=== PATIENT | female | born 1985 | race Caucasian/White ===

== ENCOUNTER 2019-07-09 10:12 | Outpatient (REF) | payer OTHER, SELFPAY ==
[2019-07-09 10:47] LABS: Absolute Basophil Count 0.01 k/cumm (0.0-0.2); Absolute Eosinophil Count 0.03 k/cumm (0.0-0.7); Absolute Lymphocyte Count 1.11 k/cumm (1.2-3.4); Absolute Monocyte Count 0.23 k/cumm (0.11-0.7); Absolute Neutrophil Count 3.32 k/cumm (1.2-6.7); Basophils % 0.2; Eosinophils % 0.6; HCT 38.8 % (36.0-46.0); HGB 13.7 g/dL (12.0-15.5); Lymphocytes % 23.6; Mean Corp. HGB Concentration 35.3 g/dL (32.0-36.0); Mean Corpuscular Hemoglobin 32.4 pg (27.0-33.0); Mean Corpuscular Volume 91.7 fL (80-95); Mean Platelet Volume 10.1 fL (8.0-11.0); Monocytes % 4.9; Neutrophils % 70.7; Platelet Count 189 x1000/uL (130-400); RBC 4.23 m/cumm (4.00-5.20); RBC Distribution Width 11.9 % (11.7-14.6)
[2019-07-09 11:40] LABS: *AMPHETAMINES SCREEN URINE Negative (Negative); *BARBITURATES SCREEN URINE Negative (Negative); *BENZODIAZEPINES SCREEN URINE Negative (Negative); Cannabinoids THC Negative (Negative); Cocaine Screen,Urine Negative (Negative); METHADONE URINE SCREEN Negative (Negative); OPIATES URINE SCREEN Negative (Negative)
[2019-07-09 11:41] LABS: Tricyclic Antidepressants Negative (Negative)
[2019-07-10 10:02] LABS: Hepatitis B Surface Ag Negative (Negative)
[2019-07-10 10:17] LABS: Rubella IgG Ab (UVM) Positive (See Note); Syphilis Serology (RPR) Negative (Negative); Varicella IgG Antibody Positive (See Note)
[2019-07-10 10:31] LABS: HIV-1/2 Ag & Ab Screen Negative (Negative); Hepatitis C Ab w Rflx HCV PCR Negative (Negative)
[2019-07-10 15:26] LABS: Chlamydia Result Negative (Negative); GC Result Negative (Negative)
[2019-07-11 17:56] LABS: Specimen WB Whole Blood
[2019-07-15 07:40] LABS: Buprenorphine Negative; Norbuprenorphine Negative
[2019-07-19 17:56] LABS: Result Summary NEGATIVE; Specimen WB Whole Blood
== END 2019-07-09 10:32 ==
LOC: LBN 10:12
PROVIDERS: PCP Family Medicine; Visit Provider Advanced Practice Midwife
DX: Z34.91 Encounter for supervision of normal pregnancy, unspecified, first trimester (principal); Z36.89 Encounter for other specified antenatal screening
CPT/HCPCS: 80055; 80307; 81329; 86787; 86803; 86850; 86900; 86901; 87340; 87389; 87491; 87591; 81220; 86592; 86762; 87086

== ENCOUNTER 2019-08-22 04:16 | Outpatient (CLI) | payer OTHER, SELFPAY ==
[2019-08-23 14:39] LABS: AFP 40.3 ng/mL; Calculated age at EDD 32 years; Cigarette smoking status non-Smoker; GA used in risk estimate Scan estimate; IVF Pregnancy No; Initial or repeat testing Initial testing; Insulin dependent diabetes No; Maternal Weight 135 lbs; Number of Fetuses 1; Physician Phone Number 802-748-7300; Prev Pregnancy w/NTD No; RECOMMENDED FOLLOW UP None.; Results Summary Normal risk
== END 2019-08-22 04:36 ==
PROVIDERS: PCP Family Medicine; Visit Provider Obstetrics & Gynecology
DX: Z34.92 Encounter for supervision of normal pregnancy, unspecified, second trimester (principal); Z36.89 Encounter for other specified antenatal screening
CPT/HCPCS: 36415; 82105

== ENCOUNTER 2019-09-14 03:36 | Outpatient (CLI) | payer OTHER, SELFPAY ==
--- NOTE | 2019-09-14 06:30 | DI.US_ITS ---
EXAM: US OB 2-3 TRIMESTER CLINICAL HISTORY: assesment, placental location,Z34.90. TECHNIQUE: Transabdominal obstetrical ultrasound performed. COMPARISON: No exams were available for comparison FINDINGS: Transabdominal obstetrical ultrasound performed. FINDINGS: Number of fetuses: One. position: Varied during the examination. heart rate: 165 bpm. Placental location: Posterior. No evidence of previa. BIOMETRIC DATA: Composite Age: 21 weeks 5 days EDC: 01/20/2020 Heart Rate: 165BPM Amniotic fluid index: Amount of fluid is within normal limits. ANATOMICAL SURVEY: Within normal limits. BPD: 5.2cm HC: 19.8cm AC: 16.7cm FL: 0.6cm Cisterna Magna: 5.6 mm Cerebellum: 2.3 cm Composite Age: 21 weeks 5 days EDC by US: 01/20/2020 Heart Rate: 165BPM IMPRESSION: 1. Single live intrauterine gestation as above. 2. Normal anatomic survey. DATA REPOSITORY:
== END 2019-09-14 03:56 ==
PROVIDERS: PCP Family Medicine; Visit Provider Obstetrics & Gynecology
DX: Z34.90 Encounter for supervision of normal pregnancy, unspecified, unspecified trimester (principal)
CPT/HCPCS: 76805

== ENCOUNTER 2019-10-12 01:38 | Outpatient (CLI) | payer OTHER, SELFPAY ==
[2019-10-12 08:28] LABS: Abs Immature Grans 0.03 10^3/uL (0.0-0.06); Absolute Basophil Count 0.03 10^3/uL (0.0-0.2); Absolute Eosinophil Count 0.04 10^3/uL (0.0-0.7); Absolute Lymphocyte Count 1.17 10^3/uL (1.2-3.4); Absolute Monocyte Count 0.35 10^3/uL (0.1-0.8); Absolute Neutrophil Count 5.48 10^3/uL (1.2-6.7); Basophils % 0.4; Eosinophils % 0.6; HCT 36.7 % (36.0-46.0); HGB 12.6 g/dL (11.2-15.7); Immature Grans % 0.4; Lymphocytes % 16.5; MCH 33.1 pg (27.0-33.0); MCHC 34.3 % (32.0-36.0); MCV 96.3 fL (80-95); MPV 9.8 fL (8.0-11.0); Monocytes % 4.9; Neutrophils % 77.2; Nucleated RBC 0 %; Platelet Count 161 10^3/uL (130-400); RBC 3.81 10^6/uL (3.93-5.22); RDW 11.8 % (11.7-14.6); RDW-SD 41.3 fL
[2019-10-12 08:35] LABS: Glucose,1 Hr (Glucola) 85 mg/dL (80-140)
== END 2019-10-12 01:58 ==
PROVIDERS: PCP Family Medicine; Visit Provider Obstetrics & Gynecology
DX: Z34.92 Encounter for supervision of normal pregnancy, unspecified, second trimester (principal)
CPT/HCPCS: 36415; 82950; 85025

== ENCOUNTER 2019-12-11 00:49 | Outpatient (CLI) | payer OTHER, SELFPAY ==
--- NOTE | 2019-12-11 07:15 | DI.US_ITS ---
EXAM: US OB DIMAS WEIGHT CLINICAL HISTORY: Size less than dates,Z34.90. COMPARISON: US US OB 2-3 TRIMESTER from 09/14/2019 TECHNIQUE: Transabdominal obstetrical ultrasound performed. FINDINGS: Sonographic images demonstrate a single intrauterine gestation in cephalic position. Placenta:Posterior Predicted gestational age: 33 weeks 2 days Estimated date of delivery 27 January 2020: heart rate motion is Dopplered at: 150 BPM. BPD: 86mm = 34+4 weeks HC: 305mm = 33+ 6 weeks AC: 291mm = 33+1 weeks FL: 66mm = 33+ 6 weeks EFW: 2218 Grams = 49 % Sonographically assessed composite gestational age: 33+ 6 weeks Estimated date of delivery based on this ultrasound is: 23 January 2020 Amniotic fluid index: 14.2 cm. Amount of fluid is within normal limits. IMPRESSION: size and weight are within the expected range . DATA REPOSITORY:
== END 2019-12-11 01:09 ==
PROVIDERS: PCP Family Medicine; Visit Provider Obstetrics & Gynecology
DX: Z34.93 Encounter for supervision of normal pregnancy, unspecified, third trimester (principal)
CPT/HCPCS: 76816

== ENCOUNTER 2019-12-27 13:31 | Outpatient (REF) | payer OTHER, SELFPAY ==
[2019-12-27 14:42] LABS: *AMPHETAMINES SCREEN URINE Negative (Negative); *BARBITURATES SCREEN URINE Negative (Negative); *BENZODIAZEPINES SCREEN URINE Negative (Negative); Cannabinoids THC Negative (Negative); Cocaine Screen,Urine Negative (Negative); METHADONE URINE SCREEN Negative (Negative); OPIATES URINE SCREEN Negative (Negative); Tricyclic Antidepressants Negative (Negative)
[2020-01-03 11:47] LABS: Buprenorphine Negative; Norbuprenorphine Negative
== END 2019-12-27 13:51 ==
LOC: LBN 13:31
PROVIDERS: PCP Family Medicine; Visit Provider Obstetrics & Gynecology Gynecology
DX: Z34.93 Encounter for supervision of normal pregnancy, unspecified, third trimester (principal)
CPT/HCPCS: 80307; 87081

== ENCOUNTER 2020-01-21 06:59 | Inpatient (IN) | payer OTHER, SELFPAY ==
[2020-01-21] VITALS (11 sets, daily range): BP systolic 95–118; BP diastolic 56–72; PULSE 72–90; RESP 16; TEMP 36.5–37; O2SAT 98
[2020-01-21] MEDS: Penicillin G POT. 5,000,000 UNITS in Normal Saline 100 ML 200 UNITS IVPB (07:48)
[2020-01-21 07:51] LABS: HCT 37.1 % (36.0-46.0); MCH 33.1 pg (27.0-33.0); MCV 94.4 fL (80-95); MPV 10.5 fL (8.0-11.0); Platelet Count 154 10^3/uL (130-400); RBC 3.93 10^6/uL (3.93-5.22); RDW 11.7 % (11.7-14.6); RDW-SD 40.3 fL; WBC 7.38 10^3/uL (4.4-10.8)
[2020-01-21] MEDS: Lactated Ringers 1,000 ML 125 ML IV (07:51)
--- NOTE | 2020-01-21 07:57 | HPE_ITS ---
Date of service: 01/21/20 Time of Service: 07:58 Assessment and Plan Assessment and plan (1) Active labor at term: Status: Acute Assessment and plan: Patient in active labor we will admit anticipate vag inal delivery. Admission labs obtained (2) GBS (group B Streptococcus carrier), +RV culture, currently : Status: Acute Assessment and plan: Will begin penicillin for GBS prophylaxis OB-HPI Labor/Delivery History of Present Illness Reason for Visit: LABOR Chief Complaint: Suspected Labor. DOV Calculator Estimated Delivery Date Method Current WG Current Estimate 01/27/20 Ultrasound #1 39w 1d Other Estimates 01/18/20 LMP (Certain) 40w 3d History of Present Expected Delivery Route/Plan - FOB - Donaldo Stanley ( his third as well) Specific Issues/Plan 1. [place], CF and SMA drawn 1a. 07/18/19: [place] neg x3 SMA neg pt informed of same. al 1b. SMA & CF carrier screen negative 2. Desires AFP when GA appropriate. al 3. GBS RV Cx +. Needs PCN in labor. Review of Systems All systems reviewed & are unremarkable except as noted in HPI and below PFSH Family History Maternal Grandmother Rheumatoid arthritis in remission Cancer skin Paternal Grandmother Heart disease of [place] Cancer skin Social History Smoking/Tobacco Use Status: Never Smoking risk assessment performed?: Yes Alcohol Intake: never Drug use: Never Household members: spouse and children Housing: house Number of Children: 2 current occupation: stay at home mom What is your relationship status?: Panel score (0-1 are the most socially isolated patients): 1 History History 2 Para 2 Hx # Term Pregnancies Multiple births Hx # Pregnancies Ectopic pregnancies AB induced Hx Number of Living Children AB spontaneous Past Pregnancies Del. Date GA/Weeks # Outcome Route Wgt Sex Labor Lgth Anesthes ia Location [facility] 09/14/15 39 No Successful vaginal 8 lb 2 oz Male 14 hours [facility] 06/20/17 37 No Successful vaginal 6 lb 12 oz Male 2 hours [place] Delivery Date: 09/14/15 Low oxygen after , [facility]. jaundice. echo for possible hole in heart. Normal heart at . CP cysts, elevated quad screen. Karrie Hung Delivery Date: 06/20/17 precipitous delivery. Karrie Rosenberg Meds Home Medications and Allergies Home Medications Medication Instructions Recorded Confirmed Type prenat.vits,daisy,nom-aihs-ybzoh 1 tab PO DAILY 05/14/19 01/16/20 History cholecalciferol (vitamin D3) 50 50 mcg PO DAILY 08/13/19 01/16/20 History mcg (2,000 unit) chewable tablet Allergies Allergy/AdvReac Type Severity Reaction Status Date / Time No Known Allergies Allergy Verified 01/16/20 09:07 Exam Constitutional Constitutional: no acute distress Comments: Bishops score: 8 Detailed Labor and Delivery Exam Story Score: Cervical Points Exam 0 1 2 3 Dilation Closed 1-2cm 3-4 cm 5-6cm Effacement 0-30% 40-50% 60-70% 80% Consistency Firm Medium Soft Station -3 -2 -1,0 +1,+2 Position Posterior Mid Anterior Fetus A Monitor Accelerations: 15 X 15 Monitor Decelerations: None Variability: Moderate (6-25 BPM) Presentation: Cephalic Categories: Category I Est. Weight: 3600 lb Date of Membrane Rupture: 01/21/20 Time of Membrane Rupture: 04:00 HEENT Exam HEENT Exam: Normal Respiratory Exam Respiratory Exam: Normal Cardiovascular Exam Cardiovascular Exam: Normal Abdominal Exam Abdominal Exam: Normal (Gravid, no focal tenderness) Exam Exam: Normal Extremities Exam Extremities Exam: Normal Skin Exam Skin Exam: Normal Neurological Exam Neurological Exam: Normal Psychiatric Exam Psychiatric Exam: Normal Results Abnormal Lab Findings: Abnormal Labs 01/21/20 07:22 MCH 33.1 H Risk Assessment Risk for Shoulder Dystocia Historical/Initial OB: NEGATIVE FOR: Pelvic Abnormality, Pre- BMI>30, Previous Shoulder Dystocia or Previous Macrosomia Risk for Pre-Eclampsia Yes, if one or more: NEGATIVE FOR: Hx Pre-E/Gest HTN, Chronic HTN, Multiple Gestation, Pre-gestational DM, Renal Disease, Systemic Lupus or APA Syndrome Yes, if 2 or more: NEGATIVE FOR: Nulliparity, Age>= 35 yrs, >10yr btwn pregnancies, BMI>30, ethinicty, Mother/Sister w/ Pre-E or Previous IUGR Risk for Post- Hemorrhage Initial: NEGATIVE FOR: Multiple Gestation, Previous PPH, Known Clotting Deficiency, Grand Multiparity or Anticoagulation Risks Reviewed Risks Reviewed Upon Admission: Yes (GBS prophylaxis initiated)
--- NOTE | 2020-01-21 10:04 | W.PM.OBNL1 ---
Date of service: 01/21/20 Time of Service: 10:04 Pelvic Exam Dilation: 5 Effacement (%): 100 station: +2 Position: OA Cervix Position: posterior Consistency: soft Vaginal Exam Presentation: Cephalic Contractions Monitor Mode: None Contraction Frequency(min): 2 Intensity: Moderate/Strong Fetus A Monitor: Doppler Decelerations: None Assessment Note: heart rate auscultated with Doppler during and after contraction. Assessment and Plan Assessment and plan (1) GBS (group B Streptococcus carrier), +RV culture, currently : Status: Acute Assessment and plan: Patient has received 5 milliunits of loading dose of penicillin. (2) Active labor at term: Status: Acute Assessment and plan: Anticipate vaginal delivery. Objective Abnormal lab results 01/21/20 Range/Units 07:22 MCH 33.1 H (27.0-33.0) pg Temp Pulse Resp BP Pulse Ox 98.2 F 82 16 118/68 98 01/21/20 08:11 01/21/20 08:11 01/21/20 07:52 01/21/20 08:11 01/21/20 07:52 Laboratory Results WBC 7.38 10^3/uL (4.4-10.8) 01/21/20 07:22 RBC 3.93 10^6/uL (3.93-5.22) 01/21/20 07:22 Hgb 13.0 g/dL (11.2-15.7) 01/21/20 07:22 Hct 37.1 % (36.0-46.0) 01/21/20 07:22 MCV 94.4 fL (80-95) 01/21/20 07:22 MCH 33.1 pg (27.0-33.0) H 01/21/20 07:22 MCHC 35.0 % (32.0-36.0) 01/21/20 07:22 RDW 11.7 % (11.7-14.6) 01/21/20 07:22 Plt Count 154 10^3/uL (130-400) 01/21/20 07:22 MPV 10.5 fL (8.0-11.0) 01/21/20 07:22 Patient ABO/Rh A Positive 01/21/20 07:22 Antibody Screen Negative 01/21/20 07:22 Subjective Patient Reports: No new Complaints (Tolerating regular contractions) Interventions Pain Management Interventions: Coping Well, No Interventions needed . Results Hemoglobin/Hematocrit: Hgb 13.0 g/dL (11.2-15.7) 01/21/20 07:22 Hct 37.1 % (36.0-46.0) 01/21/20 07:22 Abnormal Lab Findings: Abnormal Labs 01/21/20 07:22 MCH 33.1 H
[2020-01-21] MEDS: Penicillin G POT. 3,000,000 UNITS in Normal Saline 50 ML 100 UNITS IVPB (10:52)
[2020-01-21] MEDS: Oxytocin/Normal Saline 30 UNITS/500 ML BAG 167 UNITS IV (10:55)
[2020-01-21] MEDS: Acetaminophen 325 MG TAB 650 MG PO (16:09)
[2020-01-22 10:15] VITALS: BP 110/60; PULSE 84; RESP 16; TEMP 36.5
--- NOTE | 2020-01-22 10:18 | OBPPV_ITS ---
Date of service: 01/22/20 Time of Service: 10:18 Assessment and Plan Assessment and plan (1) (normal spontaneous vaginal delivery): Status: Acute Assessment and plan: day 1 status post normal spontaneous vaginal delivery. Doing well. Breast-feeding inclusively. Baby's her today. Anticipates discharge this afternoon. Follow-up in the office in approximately 2 weeks time for checkup. Subjective Subjective Patient comments: No complaints and Pain well controlled [place] baby status: Doing well and Nursing well [place] feeding status: Exclusively breast feeding Exam Physical Exam Vital signs: Temp Pulse Resp BP Pulse Ox 97.7 F 75 16 116/72 98 01/21/20 17:15 01/21/20 17:15 01/21/20 17:15 01/21/20 17:15 01/21/20 17:15 HEENT Exam HEENT Exam: Normal Respiratory Exam Respiratory Exam: Normal Cardiovascular Exam Cardiovascular Exam: Normal Abdominal Exam Comments: Normla Extremities Exam Extremity Exam: Normal; negative Calf Tenderness Psychiatric Exam Psychiatric Exam: Normal Results Hemoglobin/Hematocrit: Hgb 13.0 g/dL (11.2-15.7) 01/21/20 07:22 Hct 37.1 % (36.0-46.0) 01/21/20 07:22 Abnormal Lab Findings: Abnormal Labs 01/21/20 07:22 MCH 33.1 H
--- NOTE | 2020-01-22 10:21 | W.PM.OBDISCH ---
Date of service: 01/22/20 Time of Service: 10:22 DS: Diagnosis Discharge Diagnosis (1) (normal spontaneous vaginal delivery): Status: Acute Discharge Plan Disposition Patient Disposition: HOME Condition: Good Discharge Details Reason For Visit: LABOR Admit Date/Time: 01/21/20 06:59 Admit Provider: Karrie Juarez Attending Provider: Karrie Juarez Primary Care Provider: [facility] Course Hospital Course: Patient presented in active labor. She progressed to the point she was completely dilated. She had normal spontaneous vaginal delivery of a viable male infant. She had uncomplicated course. She discharged home day #1 ambulating, tolerating regular diet and oral pain medication with stable vital signs. Her boy was circumcised prior to discharge. Home Meds and New Rx's Prescriptions: New ibuprofen 800 mg tablet 800 mg PO Q8H PRN (Reason: pain) Qty: 20 RF: 0 Continued prenat.vits,daisy,gva-ucjq-ybbid Tablet 1 tab PO DAILY RF: 0 cholecalciferol (vitamin D3) 50 mcg (2,000 unit) tablet,chewable 50 mcg PO DAILY RF: 0 (DME) breast pump Device See Rx Instructions .ROUTE .MEDSUPPLY Qty: 1 RF: 0 Discharge Instructions Stand Alone Forms: BC Post Vaginal Deliver Activity:: Activity as Tolerated Equipment/Supplies:: No Equipment Needed Diet:: As Tolerated Discharge Orders Discharge Orders: Discharge Order (Routine); Ordered 01/22/20 Ordered By: Emily Meredith OB:DS Summary Contraception Discussed Contraception Discussed: No, Gender-Baby A: Male weight: 6 lb 8.587 oz Status at Discharge Functional status at discharge: independent ambulation Overall status at discharge: patient is back to baseline Mental Status: mental status grossly normal Speech and Movement: speech and movement normal Mood: congruent mood Affect: normal affect Exam Physical Exam Vital signs: Temp Pulse Resp BP Pulse Ox 97.7 F 75 16 116/72 98 01/21/20 17:15 01/21/20 17:15 01/21/20 17:15 01/21/20 17:15 01/21/20 17:15 Constitutional Comments: Please see examination from progress note dated 01/22/2020 [facility] Medical History (normal spontaneous vaginal delivery) Family History Maternal Grandmother Rheumatoid arthritis in remission Cancer skin Paternal Grandmother Heart disease of [place] Cancer skin Social History Smoking/Tobacco Use Status: Never Smoking risk assessment performed?: Yes Alcohol Intake: never Drug use: Never Substance use type: does not use Household members: spouse and children Housing: house Number of Children: 2 current occupation: stay at home mom What is your relationship status?: Panel score (0-1 are the most socially isolated patients): 1 Do you feel safe at home: Yes Do you feel safe in your relationship?: Yes History History 2 Para 2 Hx # Term Pregnancies Multiple births Hx # Pregnancies Ectopic pregnancies AB induced Hx Number of Living Children AB spontaneous Past Pregnancies Del. Date GA/Weeks # Outcome Route Wgt Sex Labor Lgth Anesthesia Location [facility] 09/14/15 39 No Successful vaginal 8 lb 2 oz Male 14 hours [facility] 06/20/17 37 No Successful vaginal 6 lb 12 oz Male 2 hours [place] Delivery Date: 09/14/15 Low oxygen after , [facility]. jaundice. echo for possible hole in heart. Normal heart at . CP cysts, elevated quad screen. Karrie Hung Delivery Date: 06/20/17 precipitous delivery. Jasbir. Karrie Juarez DS: Data Vitals/I&O Vitals and I&O: Vital Signs Temperature 97.7 F 01/21/20 17:15 Pulse 75 01/21/20 17:15 Pulse Rhythm Regular 01/21/20 20:33 Respiratory Rate 16 01/21/20 17:15 Blood Pressure 116/72 01/21/20 17:15 Blood Pressure Mean 86 01/21/20 17:15 Pulse Oximetry 98 01/21/20 17:15 Oxygen Delivery Method Room Air 01/21/20 07:52 Oxygen Flow Rate 0 01/21/20 07:52 Pain Level 3 01/21/20 16:09 Intake & Output 01/21/20 01/21/20 01/22/20 11:59 23:59 11:59 Intake Total 10 / 1060 1050 / 1060 Output Total 1100 / 1100 Balance -1090 / -40 1050 / -40 Weight 5.573 oz Intake: IV 1059 1050 / 1060 Output: Urine 900 / 900 Emesis 200 / 200
--- NOTE | 2020-01-25 16:26 | OBVDS_ITS ---
Date of service: 01/25/20 Time of Service: 16:27 OB Labor/ Delivery Information Baby A Delivery Delivery Method: Spontaneaous Presentation: Cephalic Cephalic Position: Vertex Vertex Position: Right Occipital Posterior Breech Position: N/A Cord Description-Baby A: 3 Vessels Cord Description Comment: Nl configuration Amniotic Fluid: Clear Estimated Blood Loss: 100 Delivery Outcome: Liveborn Complications: None Infant Transferred: Remains with Mother Providers Doctor: Karrie Juarez Human Relations Professor: Chandler Christiansen Nurse: Ping Alan Nurse: Carlos Holcomb Labor/Delivery Information Number of Babies in Womb: 1 Reason Steroids Not Administered: N/A Group Beta Strep: Positive Antibiotics Administered: Yes Number of Doses of Antibiotics: 2 Rubella Status: Immune Blood Type: A+ Varicella Immunity: Immune Medication in Delivery: Oxytocin infusion initiated after delivery of Born En Route: No Maternal Complications: None Shoulder Dystocia: No Stages of Labor Onset of Labor Date: 01/21/20 Onset of Labor Time: 07:57 ROM Baby A: 01/21/20 ROM Baby A: 04:30 ROM Total Time- Baby A: [id number] Delivery Date-Baby A: 01/21/20 Delivery Time-Baby A: 11:10 Placenta Delivery Date-Baby A: 01/21/20 Placenta Delivery Time-Baby A: 11:18 Labor-Stage 3 Duration: 8 minutes Total Length of Labor-Baby A: 3 hours and 13 minutes Placenta Cultured: No Placenta Status: Delivered Baby A Gender: Male (Name: Joseph) Gestational Status: Term (39-41.6 wks) Gestational Age in Weeks/Days: 39 Weeks and 1 Days weight: 6 lb 8.587 oz Score-1 Minute Interval(Baby A) Heart Rate-1 minute: 100 BPM or Greater Respiratory Effort- 1 minute: Spontaneous/Strong Cry Muscle Tone-1 minute: Active Movement Reflex Response-1 minute: Prompt Response Color-1 minute: Bluish Hands or Feet Total Score-1 minute: 9 Score-5 Minute Interval(Baby A) Heart Rate- 5 minute: 100 BPM or Greater Respiratory Effort-5 minute: Spontaneous/Strong Cry Muscle Tone-5 minute: Active Movement Reflex Response-5 minute: Prompt Response Color-5 minute: Bluish Hands or Feet Total Score- 5 minute: 9
== END 2020-01-22 14:00 | disposition home or self-care (01) | DRG 807 ==
PROVIDERS: Admitting Provider Obstetrics & Gynecology Gynecology; PCP Family Medicine; Visit Provider Obstetrics & Gynecology Gynecology
DX: O99.824 Streptococcus B carrier state complicating childbirth (principal); Z37.0 Single live birth; Z3A.39 39 weeks gestation of pregnancy
CPT/HCPCS: 85027; 86850; 86900; 86901; J2540

== ENCOUNTER 2020-01-22 09:46 | Outpatient (CLI) | payer OTHER, SELFPAY | END 2020-01-22 10:06 | PROVIDERS: PCP Family Medicine; Visit Provider Obstetrics & Gynecology | DX: Z39.1 Encounter for care and examination of lactating mother (principal) | CPT/HCPCS: E0602 ==

== ENCOUNTER 2020-07-25 15:36 | Outpatient (REF) | payer OTHER, SELFPAY ==
--- NOTE | 2020-07-25 14:45 | PAPFT_PTH ---
PATIENT: Carol Stanley LOC: [facility]#:[id number] AGE/SX: 34/F ROOM: RE07/25/[address]: Naima Green : 1985 BED: DIS: 07/25/2020 SPEC #: [id number] RECD: 07/25/20 18:00 STATUS: PRIYANK GUEVARA #: [id number] MONET: 07/25/20 14:[address]: Naima Green DEPT: [facility] Cytology RECD BY: Miriam Juan Tissues: 1 - CX/ENDOCX FOR PAP SMEARS Procedures: PAP THIN PREP/UVM Screening HPV DNA PROBE Comments: [id number]
== END 2020-07-25 15:37 | disposition home or self-care (01) ==
LOC: NCHCN 15:36
PROVIDERS: PCP Family Medicine; Visit Provider Family Medicine
DX: Z00.00 Encounter for general adult medical examination without abnormal findings (principal); Z12.4 Encounter for screening for malignant neoplasm of cervix; Z11.51 Encounter for screening for human papillomavirus (HPV)
CPT/HCPCS: 88142; 87624

== ENCOUNTER → 2022-10-14 03:32 | Outpatient (CLI) | payer OTHER, SELFPAY ==
--- NOTE | 2022-10-14 08:15 | DI.MAMMO_ITS ---
Exam(s) MAMMO DIAGNOSTIC BI EXAM: MAMMO DIAGNOSTIC BI AND COMPLETE LEFT BREAST ULTRASOUND CLINICAL HISTORY: increased size L nipple sweat gland,NIPPLE MASS, N63.0. TECHNIQUE: BILATERAL CC AND MLO VIEWS OF BOTH BREASTS mammographic images were obtained with 3D ruddy synthesis technique and utilizing computer aided detection (CAD). COMPLETE LEFT BREAST ULTRASOUND performed including all 4 quadrants as well as the retroareolar regio n and left axilla. Also scanned the nipple. COMPARISON: Baseline mammogram on this 36-year-old patient who apparently has a clinical left breast finding. FINDINGS: DIAGNOSTIC BILATERAL MAMMOGRAM: The fibroglandular tissue pattern is dense bilaterally. There are no obvious spiculated masses nor malignant-appearing microcalcification groups in either br east. No significant architectural distortion or skin thickening-traction. COMPLETE LEFT BREAST ULTRASOUND: There is no evidence solid or significant cystic lesions in all 4 quadrants of the left breast. Retr oareolar region ducts appear unremarkable without dilatation nor inspissated material therein. We scanned the nipple using standoff technique. It appears that her main complaint is on the medial aspect of the nipple. We were not able to demonstrate and ultrasound visible finding where there is a clinically visible finding. Scanning of the left axilla is negative for significant adenopathy. IMPRESSION: 1. Dense bilateral fibroglandular tissue. No obvious radiographic evidence of malignancy. 2. Negative complete left breast ultrasound. 3. Please note that the finding on her nipple is difficult to image adequately mammography and ultras ound. If clinically indicated she can be referred to a breast surgeon. The patient was informed of the findings and follow-up recommendations by myself prior to leaving the department today. BI-RADS Category 2 - Benign Findings Breast Density - Category D - Extremely dense Breast density Category C or D implies that the patient has dense breast tissue. Dense breast tissue can make it harder to find cancer on a mammogram. Dense breast tissue is also associated with an incr eased risk of breast cancer. This information about the result of the mammogram report was provided to the patient to raise their awareness. Use this report when you speak with the patient about their risks for breast cancer, which includes their family history. At that time, you may recommend additional screening tests (Ultrasoun d or MRI) as these tests may add significant information. A negative radiographic report should not delay biopsy if a dominant or clinically suspicious mass is present. Up to ten percent of cancers are not identified on mammography. A negative report may reinforce clinical impression. Adenosis and dense breasts may obscure an underlying neoplasm. False positive reports average 6 to 10%. Patient will receive a letter notifying them of these results.
--- NOTE | 2022-10-14 08:17 | DI.US_ITS ---
Exam(s) US BREAST LT COMPLETE EXAM: US BREAST LT COMPLETE CLINICAL HISTORY: increased size L nipple sweat gland,MASS OF NIPPLE,N63.0. TECHNIQUE: Complete ultrasound of the left breast was performed including all 4 quadrants, the retro areolar region, and the ipsilateral axilla. COMPARISON: See combined report FINDINGS: See combined report IMPRESSION: See combined report
== END ==
PROVIDERS: PCP Family Medicine; Visit Provider Obstetrics & Gynecology Gynecology
DX: Z12.31 Encounter for screening mammogram for malignant neoplasm of breast (principal); R92.8 Other abnormal and inconclusive findings on diagnostic imaging of breast
CPT/HCPCS: 76642; 77062; 77066; G0279

== ENCOUNTER 2024-10-08 16:16 | Outpatient (REF) | payer OTHER, SELFPAY ==
[2024-10-08 20:59] LABS: HCT 41.2 % (36.0-46.0); HGB 14.0 g/dL (11.2-15.7); MCH 32.0 pg (27.0-33.0); MCHC 34.0 % (32.0-36.0); MCV 94 fL (80-95); MPV 10.0 fL (8.0-11.0); Platelet Count 200 10^3/uL (130-400); RBC 4.38 10^6/uL (3.93-5.22); RDW 11.4 % (11.7-14.6); RDW-SD 39.1 fL; WBC 5.40 10^3/uL (4.4-10.8)
[2024-10-08 21:44] LABS: ALT 20 U/L (14-59); AST 20 U/L (15-37); Albumin 4.0 g/dL (3.4-5.0); Alkaline Phosphatase 41 U/L (46-116); Anion Gap 7.2 mmol/L (3-11); BUN 13 mg/dL (7-18); Bilirubin, Total 0.6 mg/dL (0.2-1.0); CO2 29.8 mmol/L (21.0-32.0); Calcium 8.9 mg/dL (8.5-10.1); Chloride 104 mmol/L (98-107); Estimated GFR 119.23 (mL/min/1.73m2); Folate > 20.0 ng/mL (8.6-20.0); Glucose 86 mg/dL (74-106); Potassium 4.2 mmol/L (3.5-5.1); Sodium 141 mmol/L (136-145); TSH (W/Ref FT4) 1.92 uIU/mL (0.36-3.74); Total Protein 7.1 g/dL (6.4-8.2); Vitamin B12 630 pg/mL (193-986)
== END 2024-10-08 16:17 | disposition home or self-care (01) ==
LOC: NCHCN 16:16
PROVIDERS: PCP Family Medicine; Visit Provider Family Medicine
DX: R41.3 Other amnesia (principal); R53.83 Other fatigue
CPT/HCPCS: 80053; 85027; 82607; 82746; 84443